=== PATIENT | female | born 1975 | race Caucasian/White ===

== ENCOUNTER 2023-05-30 18:36 | Outpatient (CLI) | payer OTHER, SELFPAY ==
[2023-05-30 18:56] LABS: Basophils # 0.1 K/mm3 (0-0.2); Basophils % 1.6 % (0.1-2.0); Eosinophils # 0.2 K/mm3 (0.0-0.4); Eosinophils % 2.7 % (0.1-12.0); Hematocrit 46.7 % (37.0-47.0); Lymphocytes # 3.2 K/mm3 (0.7-4.5); Lymphocytes % 39.3 % (10-50); Mean Corpuscular HGB Conc 32.1 g/dL (31.8-35.4); Mean Corpuscular Hemoglobin 30.3 pg (27.0-31.2); Mean Corpuscular Volume 94.5 fl (81-99); Mean Platelet Volume 8.1 fl (7.4-10.4); Monocytes # 0.5 K/mm3 (0.1-1.0); Monocytes % 6.6 % (1.7-9.3); Neutrophils # 4.1 K/mm3 (1.8-7.8); Neutrophils % 49.8 % (37.0-80.0); Platelet Count 336 K/mm3 (142-424); Red Blood Count 4.94 M/mm3 (4.20-5.40); Red Cell Distribution Width 12.9 % (11.5-17.5); White Blood Count 8.2 K/mm3 (4.8-10.8)
[2023-05-30 19:18] LABS: Alanine Aminotransferase 44 U/L (12-78); Albumin Level 4.1 g/dl (3.5-5.0); Albumin/Globulin Ratio 1.6 (1.1-1.8); Alkaline Phosphatase 127 U/L (38-126); Anion Gap 10.5 mEq/L (5-15); Aspartate Amino Transferase 39 U/L (14-36); Bilirubin,Total 0.3 mg/dl (0.2-1.3); Blood Urea Nitrogen 13 mg/dl (7-17); Calcium 9.3 mg/dl (8.4-10.2); Carbon Dioxide 26 mmol/L (22.0-30.0); Chloride 108 mmol/L (98-107); Chol/HDL Ratio 4.1 (1-3.5); Cholesterol 225 mg/dl (140-200); Estimated Glomerular Filt Rate 106 ml/min (>60); GFR (African American) 128 ML/MIN (>60); Globulin 2.6 g/dL (1.3-3.2); Glucose 95 mg/dl (74-100); HDL Cholesterol 55 mg/dl (40-60); Potassium 4.5 mmoL/L (3.5-5.1); Sodium 140 mmol/L (136-145); Total Protein,Serum 6.7 g/dl (6.3-8.2); Triglycerides 121 mg/dl (30-150); VLDL Cholesterol 24 mg/dL (0-40)
[2023-05-30 19:29] LABS: Direct LDL Cholesterol 111.55 mg/dL (100-129)
[2023-05-30 19:34] LABS: 25-OH Vitamin D, Total 22.4 ng/mL (30-100)
[2023-05-30 19:49] LABS: Thyroid Stimulating Hormone 2.15 uIU/mL (0.465-4.68)
[2023-05-30 20:08] LABS: Vitamin B12 427 pg/mL (239-931)
[2023-05-30 20:32] LABS: Hemoglobin A1C 5.3 % (4.0-6.0)
== END 2023-05-30 23:59 ==
LOC: LAB.DROPOF 18:38
PROVIDERS: PCP Nurse Practitioner; Visit Provider Nurse Practitioner
DX: E66.9 Obesity, unspecified (principal); Z68.41 Body mass index [BMI] 40.0-44.9, adult; Z13.1 Encounter for screening for diabetes mellitus; Z13.0 Encounter for screening for diseases of the blood and blood-forming organs and certain disorders involving the immune mechanism; Z13.220 Encounter for screening for lipoid disorders; Z13.29 Encounter for screening for other suspected endocrine disorder; Z13.21 Encounter for screening for nutritional disorder
CPT/HCPCS: 80053; 80061; 82306; 82607; 83036; 84443; 85025

== ENCOUNTER 2023-09-24 21:38 | Emergency (ER) | payer OTHER, SELFPAY ==
--- NOTE | 2023-09-24 21:54 | HMH.EDGENADL ---
Discharge Plan Disposition Patient Disposition: Home, Self-Care Prescriptions Prescriptions: No Action cholecalciferol (vitamin D3) 125 mcg (5,000 unit) tablet 125 mcg PO DAILY Qty: 30 5RF dextroamphetamine-amphetamine [Adderall XR] 10 mg capsule,extended release 24hr 10 mg PO DAILY Qty: 30 0RF dextroamphetamine-amphetamine [Adderall XR] 20 mg capsule,extended release 24hr 20 mg PO DAILY Qty: 30 0RF Referrals Follow up/Referrals: Maritza Turner APRN [Primary Care Provider] - See instructions Activity Restrictions/Add. Instructions Additional Instructions/Restrictions: Please call my eye doctor in the morning to establish follow-up. Turn to ER for any worsening signs or symptoms as needed Clinical Impressions Clinical Impression: Abrasion, corneal Qualifiers: Encounter type: initial encounter Laterality: right Qualified Code(s): S05.01XA - Injury of conjunctiva and corneal abrasion without foreign body, right eye, initial encounter Instructions Patient Instructions: DI for Corneal Abrasion Print Language Print Language: Latvian Discharge ED Provider: Dena Feliz General Adult HPI <LINDSEY Oh - Last Filed: 09/24/23 22:14> General Chief complaint: Eye Problems Stated complaint: 09-24-23 hit in right eye Time Seen by Provider: 09/24/23 21:54 History of Present Illness HPI narrative: Patient presents for a right injury. Patient was struck in the eye by the eraser end of a pencil. She has had difficulty and pain since even trying to keep her eye open. She does not have loss of vision but has a sensation of foreign body especially when she blinks Related Data Previous Rx's ?Medication ?Instructions ?Recorded cholecalciferol (vitamin D3) 125 125 mcg PO DAILY #30 tabs 05/31/23 mcg (5,000 unit) tablet dextroamphetamine-amphetamine ER 10 mg PO DAILY #30 caps 09/20/23 10 mg 24hr capsule,extend release (Adderall XR) dextroamphetamine-amphetamine ER 20 mg PO DAILY #30 caps 09/20/23 20 mg 24hr capsule,extend release (Adderall XR) Allergies Allergy/AdvReac Type Severity Reaction Status Date / Time No Known Allergies Allergy Verified 07/25/23 13:41 PFSH <LINDSEY Oh - Last Filed: 09/24/23 22:14> [facility] Disclaimer: The information contained in this section may have been updated after the patient was seen, as this information can be updated by other users. Medical History (Updated 09/24/23 @ 22:07 by LINDSEY Oh) Generalized anxiety disorder MDD (major depressive disorder) Attention deficit disorder (ADD) in adult Choledocholithiasis Surgical History H/O knee surgery Family History Father Alcoholism Mother FHx: mental illness Depression and anxiety Social History Smoking Status: Unknown if ever smoked alcohol intake: never current occupational status: employed Travel in the last 8 weeks: None <LINDSEY Oh - Last Filed: 09/24/23 22:14> ROS Obtained: Yes Systems reviewed as appropriate & no additional complaints except as documented Physical Exam <LIDNSEY Oh - Last Filed: 09/24/23 22:14> General General appearance: alert and in no apparent distress Eye Eye exam: Present PERRL, EOMI, conjunctival redness and conjunctival injection Expanded Eye Exam Both Eyes Image: 1. Corneal abrasion Respiratory Respiratory exam: Present normal lung sounds bilaterally Cardiovascular Cardiovascular exam: Present regular rate and normal rhythm Neurological Exam Neurological exam: Present alert and oriented X3 Medical Decision Making <LINDSEY Oh - Last Filed: 09/24/23 22:14> [facility] Inquiry Pt receiving controlled substance: No Vital Signs: 09/24/23 21:56 Temperature 98.2 F Temperature Source Oral Respiratory Rate 15 Blood Pressure [Right Arm] 145/81 H Blood Pressure Mean [Right Arm] 102 Blood Pressure Source [Right Arm] Automatic Cuff Blood Pressure Position [Right Arm] Sitting 02 Sat by Pulse Oximetry 99 Oxygen Delivery Method Room Air Medical Decision Narrative: In summary patient is a 48-year-old female who presents to the emergency department for evaluation of right eye injury. Patient is hemodynamically stable upon arrival, febrile. Physical exam shows a right eye that has conjunctival injection but pupils are equal round reactive to light accommodation. Exam was accomplished after topical anesthetic with tetracaine. Patient has equal bilateral visual acuity. Exam under fluorescein stain shows a corneal abrasion approximately 6:00 on the cornea with no penetration. Differential diagnosis includes conjunctival injection versus corneal laceration versus corneal abrasion etc. Patient did report relief initially under tetracaine and her irritation is better with erythromycin ointment. Given this patient is appropriate for discharge referral for close follow-up with ophthalmology. <Dena Feliz MD - Last Filed: 09/24/23 22:17> Vital Signs: 09/24/23 21:56 Temperature 98.2 F Temperature Source Oral Respiratory Rate 15 Blood Pressure [Right Arm] 145/81 H Blood Pressure Mean [Right Arm] 102 Blood Pressure Source [Right Arm] Automatic Cuff Blood Pressure Position [Right Arm] Sitting 02 Sat by Pulse Oximetry 99 Oxygen Delivery Method Room Air Medical Decision Narrative: In summary patient is a 48-year-old female who presents to the emergency department for evaluation of right eye injury. Patient is hemodynamically stable upon arrival, febrile. Physical exam shows a right eye that has conjunctival injection but pupils are equal round reactive to light accommodation. Exam was accomplished after topical anesthetic with tetracaine. Patient has equal bilateral visual acuity. Exam under fluorescein stain shows a corneal abrasion approximately 6:00 on the cornea with no penetration. Differential diagnosis includes conjunctival injection versus corneal laceration versus corneal abrasion etc. Patient did report relief initially under tetracaine and her irritation is better with erythromycin ointment. Given this patient is appropriate for discharge referral for close follow-up with ophthalmology. I was consulted by the JUANA, and we discussed the complexity of the problems being addressed. I approved the treatment and management plan for this patient's care in the Emergency Department, thus performing a substantive portion of the medical decision making. Dena Feliz MD Critical Care <LINDSEY Oh - Last Filed: 09/24/23 22:14> Critical Care Time Critical Care Time: No
[2023-09-24 21:56] VITALS: BP 145/81; RESP 15; TEMP 36.8; O2SAT 99; BMI 38.0
[2023-09-24 22:15] VITALS: BP 150/87; PULSE 79; RESP 18; TEMP 36.8; O2SAT 99
== END 2023-09-24 22:17 | disposition home or self-care (01) ==
PROVIDERS: Emergency Provider Emergency Medicine; PCP Nurse Practitioner
DX: S05.01XA Injury of conjunctiva and corneal abrasion without foreign body, right eye, initial encounter (principal); H57.11 Ocular pain, right eye; W44.8XXA Other foreign body entering into or through a natural orifice, initial encounter
CPT/HCPCS: 99283